=== PATIENT | female | born 1975 | race Caucasian/White ===

== ENCOUNTER → 2017-05-05 | Outpatient (CLI) | payer BC | LOC: LAB EV 17:08 | DX: N39.0 Urinary tract infection, site not specified (principal) | CPT/HCPCS: 87077; 87086; 87186 ==

== ENCOUNTER → 2017-10-11 | Outpatient (CLI) | payer BC | END | disposition home or self-care (01) | LOC: LAB 16:01 → LAB SHORT 16:01 | DX: R30.0 Dysuria (principal) | CPT/HCPCS: 87086 ==

== ENCOUNTER → 2017-10-27 | Outpatient (CLI) | payer BC | END | disposition home or self-care (01) | LOC: LAB SHORT 15:14 → LAB EV 15:14 | DX: N39.0 Urinary tract infection, site not specified (principal) | CPT/HCPCS: 87077; 87086; 87186 ==

== ENCOUNTER → 2018-05-09 | Outpatient (CLI) | payer BC | END | disposition home or self-care (01) | LOC: LAB 11:02 → LAB SHORT 11:02 | DX: R30.0 Dysuria (principal) | CPT/HCPCS: 87077; 87086; 87186 ==

== ENCOUNTER → 2018-06-06 | Outpatient (CLI) | payer BC | END | disposition home or self-care (01) | LOC: LAB SHORT 10:48 → LAB 10:48 | DX: R30.0 Dysuria (principal) | CPT/HCPCS: 87077; 87086; 87186 ==

== ENCOUNTER → 2018-06-28 | Outpatient (CLI) | payer BC | END | disposition home or self-care (01) | LOC: LAB SHORT 12:36 → LAB 12:36 | DX: R30.0 Dysuria (principal) | CPT/HCPCS: 87077; 87086; 87186 ==

== ENCOUNTER → 2018-07-18 | Outpatient (CLI) | payer BC | END | disposition home or self-care (01) | LOC: LAB 16:02 → LAB SHORT 16:02 | DX: R30.0 Dysuria (principal) | CPT/HCPCS: 87077; 87086; 87186 ==

== ENCOUNTER → 2018-09-23 | Outpatient (CLI) | payer BC | END | disposition home or self-care (01) | LOC: LAB SHORT 18:19 → LAB EV 18:19 | DX: N39.0 Urinary tract infection, site not specified (principal) | CPT/HCPCS: 87077; 87086; 87186 ==

== ENCOUNTER → 2019-01-14 | Outpatient (CLI) | payer BC | END | disposition home or self-care (01) | LOC: LAB SHORT 12:43 → LAB 12:43 | DX: R30.0 Dysuria (principal) | CPT/HCPCS: 87086 ==

== ENCOUNTER → 2019-02-10 | Outpatient (CLI) | payer BC | END | disposition home or self-care (01) | LOC: LAB SHORT 11:06 → LAB 11:06 | DX: R30.0 Dysuria (principal) | CPT/HCPCS: 87077; 87086; 87186 ==

== ENCOUNTER → 2019-03-23 | Outpatient (CLI) | payer BC | END | disposition home or self-care (01) | LOC: LAB SHORT 13:41 → LAB EV 13:41 | DX: N39.0 Urinary tract infection, site not specified (principal) | CPT/HCPCS: 87077; 87086; 87186 ==

== ENCOUNTER → 2019-05-25 | Outpatient (CLI) | payer BC | LOC: LAB SHORT 11:49 → LAB EV 11:49 | DX: R30.0 Dysuria (principal) | CPT/HCPCS: 87077; 87086; 87186 ==

== ENCOUNTER → 2019-05-28 | Outpatient (CLI) | payer BC | END | disposition home or self-care (01) | LOC: LAB SHORT 11:21 → LAB 11:21 | DX: R30.0 Dysuria (principal) | CPT/HCPCS: 87077; 87086; 87186 ==

== ENCOUNTER → 2019-07-04 | Outpatient (CLI) | payer BC | LOC: LAB 12:56 → LAB SHORT 12:56 | DX: R30.0 Dysuria (principal) | CPT/HCPCS: 87077; 87086; 87186 ==

== ENCOUNTER → 2019-07-14 | Outpatient (CLI) | payer BC | END | disposition home or self-care (01) | LOC: LAB 15:43 → LAB SHORT 15:43 | DX: R30.0 Dysuria (principal) | CPT/HCPCS: 87086 ==

== ENCOUNTER → 2022-04-19 | Outpatient (CLI) | payer BC ==
[2022-04-19 13:54] LABS: BASOPHILS ABSOLUTE AUTO 0.05 K/mm3 (0.00-0.23); BASOPHILS PERCENT AUTO 1 % (0-2); EOSINOPHILS ABSOLUTE AUTO 0.14 K/mm3 (0.00-0.68); EOSINOPHILS PERCENT AUTO 2 % (0-6); Hematocrit 35.4 % (33.0-51.0); Hemoglobin 11.1 g/dL (11.5-16.0); IMMATURE GRAN ABSOLUTE AUTO 0.01 K/mm3 (0.00-0.10); IMMATURE GRAN PERCENT AUTO 0 % (0-1); LYMPHOCYTES ABSOLUTE AUTO 1.58 K/mm3 (0.84-5.20); LYMPHOCYTES PERCENT AUTO 23 % (21-46); MONOCYTES ABSOLUTE AUTO 0.58 K/mm3 (0.16-1.47); MONOCYTES PERCENT AUTO 8 % (4-13); Mean Corpuscular HGB 24.2 pg (26.0-34.0); Mean Corpuscular HGB Conc 31.4 g/dL (31.5-36.5); Mean Corpuscular Volume 77 fL (80-100); Mean Platelet Volume 10.8 fL (9.1-12.4); NEUTROPHILS ABSOLUTE AUTO 4.67 K/mm3 (1.96-9.15); NEUTROPHILS PERCENT AUTO 66 % (41-73); Platelet Count 328 K/mm3 (150-400); RDW Coefficient Variation 16.5 % (11.7-14.2); RDW Standard Deviation 46.3 fL (35.1-46.3); Red Blood Cell Count 4.58 M/mm3 (3.80-5.20); White Blood Cell Count 7.03 K/mm3 (4.00-11.30)
[2022-04-19 18:20] LABS: Alanine Aminotransfer (ALT/SGP 38 U/L (12-78); Albumin, Blood 3.9 g/dL (3.4-5.0); Albumin/Globulin Ratio 1.2 (0.8-1.8); Alk Phos 44 U/L (50-136); Anion Gap 6 mmol/L (6-16); Aspartate Aminotrans (AST/SGOT 17 U/L (12-37); Bilirubin, Total 0.2 mg/dL (0.1-1.0); Blood Urea Nitrogen 18 mg/dL (8-24); Bun/Creatinine Ratio 26.8 (12.0-20.0); CHOL/HDL RATIO 5.1; CO2, Blood 25 mmol/L (21-32); Calcium, Blood 8.9 mg/dL (8.5-10.1); Chloride, Blood 106 mmol/L (98-108); Cholesterol 229 mg/dL (50-200); Creatinine, Blood 0.67 mg/dL (0.40-1.00); Globulin, Blood 3.3 g/dL (2.2-4.0); Glomerular Filtration Rate 110 (60-); Glucose, Blood 98 mg/dL (70-99); HDL Cholesterol 45 mg/dL (>39); LDL/HDL RATIO 3.6; Low Density Lipoprotein Chol 162 mg/dL (0-110); Potassium, Blood 4.3 mmol/L (3.5-5.5); Sodium, Blood 137 mmol/L (136-145); Total Protein, Blood 7.2 g/dL (6.4-8.2); Triglycerides 108 mg/dL (30-160); Very Low Density Lipoprot Chol 21 mg/dL (6-32)
== END | disposition home or self-care (01) ==
LOC: LAB SHORT 09:42
PROVIDERS: Family Medicine
DX: Z13.6 Encounter for screening for cardiovascular disorders (principal); Z79.899 Other long term (current) drug therapy
CPT/HCPCS: 80053; 80061; 85025

== ENCOUNTER 2022-10-11 08:07 | Day surgery (SDC) | payer BC ==
[2022-10-11] VITALS (11 sets, daily range): BP systolic 118–156; BP diastolic 70–97
[~2022-10-11] VITALS: Ht 167.6 cm; Wt 88.3 kg
--- NOTE | 2022-10-11 10:45 | NUR ---
PRE-OP NOTE Ambulatory in Day Surgery Patient confirms NPO status and agrees with scheduled surgery. Pre-Op teaching done. Pt verbalizes understanding. Patient States Post-Procedure ride home has been arranged.
--- NOTE | 2022-10-11 13:50 | NUR ---
INTO STEP-S/P LEFT BREAST LUMPECTOMY. STERI-STRIPS AND GUAZE X 2 C/D/I. NO NOTED BLEEDING OR SWELLING. DNANA DRAIN X 1 WITH SMALL AMOUNT OF SANGINOUS DRAINAGE. BREAST BINDER IN PLACE. PT REPORTS 2/10 LEFT BREAST INCISIONAL PAIN. PT TOLERATING SIPS OF H20 WITHOUT DIFFICULTY. VS STABLE. PT IS AWAKE, ALERT AND ORIENTED X 4. SHE STATES THAT SHE FEELS "GROGGY" STILL. RX SENT WITH PT SPOUSE GARO TO BE DROPPED OFF AT [facility].
--- NOTE | 2022-10-11 15:10 | NUR ---
Discharge instructions reviewed with patient. Patient verbalizes understanding. Copy given to patient to take home.Reviewed DANNA drain instructions with pt and her spouse. Both pt and spouse verbalize understanding. Pt discharged to home, out via wheelchair with belongings and discharge instructions on hand.
== END 2022-10-11 15:10 | disposition home or self-care (01) ==
LOC: ORSCMMR 08:07 → NM 08:07 → ORSCMMR 08:08 → NM 09:00
PROVIDERS: Surgery
PROC: 07B60ZX Excision of Left Axillary Lymphatic, Open Approach, Diagnostic (ICD-10-PCS; principal; 2022-10-11 10:15)
PROC: 0HBU0ZZ Excision of Left Breast, Open Approach (ICD-10-PCS; principal; 2022-10-11 10:15)
DX: C50.412 Malignant neoplasm of upper-outer quadrant of left female breast (principal); C77.3 Secondary and unspecified malignant neoplasm of axilla and upper limb lymph nodes; Z17.0 Estrogen receptor positive status [ER+]; G47.33 Obstructive sleep apnea (adult) (pediatric)
CPT/HCPCS: 38792; 76098; 88307; A9270; A9520; J0690; J1100; J1885; J2250; J2405; J2704; J2765; J3010; J7120; Q9968

== ENCOUNTER 2022-11-08 06:06 | Observation (INO) | payer BC ==
[~2022-11-08] VITALS: Ht 167.6 cm; Wt 85.2 kg
[2022-11-08] VITALS (14 sets, daily range): BP systolic 119–156; BP diastolic 54–79
[~2022-11-08 06:06] MED LIST: HYDROCODONE-AC1 EA19 PO
--- NOTE | 2022-11-08 07:38 | NUR ---
PRE-OP NOTE PT A&OX4, BREATHING RA, CALM, NO CONCERNS. LUNG SOUNDS CLEAR BILATERALLY, SKIN IS PW AND DRY. Ambulatory in Day Surgery Patient confirms NPO status and agrees with scheduled surgery. Pre-Op teaching done. Pt verbalizes understanding. Discharged via wheelchair to private car for ride home.
--- NOTE | 2022-11-08 08:04 | NUR ---
11/08/22 0804 Delaney Stroud FOR LEFT MODIFIED RADICAL MASTECTOMY, PATIENT PREPPED WITH CHLORAPREP FROM MIDLINE TO LEFT SHOULDER,LEFT ARM TO FINGERTIPS CIRCUMFRENTIALLY BY BEBETO
--- NOTE | 2022-11-08 13:15 | NUR ---
ARRIVAL PATIENT TO ROOM 216 VIA GURNEY, TRANSFERRED TO BED VIA SLIDER SHEET, TOLERATED WELL. VSS ON RA, LUNGS CLEAR. GAUZE & ABD PAD TO LEFT CHEST WALL, C/D/I. BREAST BINDER IN PLACE SNUG. 2 SITES TO RIGHT CHEST FOR MEDIPORT PLACEMENT WITH GAUZE & TEGADERM IN PLACE, C/D/I. PATIENT REPORTS PAIN 2/10 AT THIS TIME & TOLERABLE. ORIENTED TO ROOM & CALL LIGHT, IN REACH. PROVIDED FIRE SAFETY EDUCATION, PATIENT & SPOUSE AT BEDSIDE VERBALIZE AGREEMENT, BOTH DENY ANY SOURCE OF IGNITION PRESENT AT THIS TIME.
[2022-11-08] MEDS ORDERED: ACET325 PO (17:05)
[2022-11-08] MEDS ORDERED: Norco 5-325 Ta1 EACH PO (17:05)
--- NOTE | 2022-11-08 17:44 | NUR ---
DISCHARGE PATIENT EATING, DRINKING, & VOIDING W/O DIFFICULTY. PAIN MANAGED WELL WITH TYLENOL. DRESSINGS C/D/I. BREAST BINDER IN PLACE. DISCUSSED DRESSING CHANGES, DRAIN MANAGEMENT, EMPTYING DANNA DRAINS, RECORDING OUTPUT AND SENT INSTRUCTIONS HOME WITH PATIENT. SENT SCRIPT WITH PATIENT, DISCUSSED DISCHARGE PACKET. PATIENT DECLINED W/C, AMBULATED OUT WITH SPOUSE.
== END 2022-11-08 17:46 | disposition home or self-care (01) ==
LOC: ORSCMMR 06:06 → ORD 07:30 → SURS 13:08 → ORSCMMR 13:09 → SURS 13:09
PROVIDERS: ADMIT Surgery
PROC: 0HTU0ZZ Resection of Left Breast, Open Approach (ICD-10-PCS; principal; 2022-11-08 07:30)
DX: C50.412 Malignant neoplasm of upper-outer quadrant of left female breast (principal); C77.3 Secondary and unspecified malignant neoplasm of axilla and upper limb lymph nodes
CPT/HCPCS: 77001; 88307; A9270; C1788; J0690; J1100; J1642; J1885; J2405; J2704; J3010; J7120

== ENCOUNTER → 2023-02-07 | Outpatient (CLI) | payer BC ==
[~2023-02-07] MED LIST changes: +ACET325 PO; +CYCLOPHOSPHAMIDE IV; +DOXORUBICIN2 MG/1 ML IV; +EPIPEN0.3 MG/0.3 IV; +FAMO10 PO; +METPRE2; +Norco 5-325 Ta1 EACH PO
[2023-02-07 12:28] LABS: BASOPHILS ABSOLUTE AUTO 0.07 K/mm3 (0.00-0.23); BASOPHILS PERCENT AUTO 1 % (0-2); EOSINOPHILS ABSOLUTE AUTO 0.17 K/mm3 (0.00-0.68); EOSINOPHILS PERCENT AUTO 3 % (0-6); IMMATURE GRAN ABSOLUTE AUTO 0.06 K/mm3 (0.00-0.10); IMMATURE GRAN PERCENT AUTO 1 % (0-1); LYMPHOCYTES ABSOLUTE AUTO 0.86 K/mm3 (0.84-5.20); LYMPHOCYTES PERCENT AUTO 14 % (21-46); MONOCYTES ABSOLUTE AUTO 0.63 K/mm3 (0.16-1.47); MONOCYTES PERCENT AUTO 10 % (4-13); Mean Corpuscular HGB 32.9 pg (26.0-34.0); Mean Corpuscular HGB Conc 34.3 g/dL (31.5-36.5); Mean Corpuscular Volume 96 fL (80-100); NEUTROPHILS ABSOLUTE AUTO 4.37 K/mm3 (1.96-9.15); NEUTROPHILS PERCENT AUTO 71 % (41-73); Platelet Count 379 K/mm3 (150-400); RDW Coefficient Variation 15.4 % (11.7-14.2); Red Blood Cell Count 3.65 M/mm3 (3.80-5.20); White Blood Cell Count 6.16 K/mm3 (4.00-11.30)
[2023-02-07 12:51] LABS: Albumin, Blood 3.9 g/dL (3.4-5.0); Albumin/Globulin Ratio 1.2 (0.8-1.8); Bilirubin, Total 0.2 mg/dL (0.1-1.0); Bun/Creatinine Ratio 27.5 (12.0-20.0); Calcium, Blood 9.1 mg/dL (8.5-10.1); Creatinine, Blood 0.62 mg/dL (0.40-1.00); Globulin, Blood 3.2 g/dL (2.2-4.0); Potassium, Blood 3.8 mmol/L (3.5-5.5); Total Protein, Blood 7.1 g/dL (6.4-8.2)
== END ==
LOC: LAB SHORT 11:48 → LAB 11:48
PROVIDERS: Internal Medicine Hematology & Oncology
DX: C50.919 Malignant neoplasm of unspecified site of unspecified female breast (principal)
CPT/HCPCS: 80053; 85025

== ENCOUNTER 2023-02-12 07:43 | Day surgery (SDC) | payer BC ==
[~2023-02-12] VITALS: Ht 167.6 cm; Wt 86.0 kg
[~2023-02-12 07:43] MED LIST changes: -CYCLOPHOSPHAMIDE IV; -DOXORUBICIN2 MG/1 ML IV; -EPIPEN0.3 MG/0.3 IV; -FAMO10 PO; -METPRE2
[2023-02-12] MEDS ORDERED: DOXORUBICIN2 MG/1 ML IV (08:12)
[2023-02-12] MEDS ORDERED: CYCLOPHOSPHAMIDE IV (08:13)
[2023-02-12] MEDS ORDERED: FAMO10 PO (08:14)
[2023-02-12] MEDS ORDERED: EPIPEN0.3 MG/0.3 IV (08:14)
[2023-02-12] MEDS ORDERED: METPRE2 (08:15)
[2023-02-12 08:29] VITALS: BP 119/72
--- NOTE | 2023-02-12 08:59 | NUR ---
02/12/23 0859 Meagan Page History, Chart, Medications and Allergies reviewed before start of procedure.MONITOR INTACT WITH CONTINUOUS PULSE OXIMETRY, CONTINUOUS END TITAL CO2, AND INTERMITTENT BLOOD PRESSURE.3-LEAD EKG REVIEWED WITH PHYSICIAN PRIOR TO START OF PROCEDURE.O2 VIA N/C INTACT THROUGHOUT SEDATION/PROCEDURE.SEE ANESTHESIA RECORD.
[2023-02-12 09:24] VITALS: BP 94/79
[2023-02-12 09:30] VITALS: BP 109/80
[2023-02-12 09:45] VITALS: BP 111/68
--- NOTE | 2023-02-12 09:53 | NUR ---
Patient up to Ambulate independently. Gait steady. Discharge instructions reviewed with patient. Patient verbalizes understanding. Copy given to patient to take home. Patient States Post-Procedure ride home has been arranged. Discharged via wheelchair to private car for ride home.
== END 2023-02-12 09:53 | disposition home or self-care (01) ==
LOC: ORSCMMR 07:43 → ORSCSDS 09:00 → ORSCMMR 09:53
PROVIDERS: Internal Medicine Gastroenterology
PROC: 0DJD8ZZ Inspection of Lower Intestinal Tract, Via Natural or Artificial Opening Endoscopic (ICD-10-PCS; principal; 2023-02-12 09:00)
DX: Z12.11 Encounter for screening for malignant neoplasm of colon (principal); C80.1 Malignant (primary) neoplasm, unspecified; G47.33 Obstructive sleep apnea (adult) (pediatric); Z68.30 Body mass index [BMI] 30.0-30.9, adult; Z79.899 Other long term (current) drug therapy
CPT/HCPCS: J2405; J2704; J7120

== ENCOUNTER 2025-01-15 07:17 | Day surgery (SDC) | payer BC ==
[~2025-01-15] VITALS: Ht 165.1 cm; Wt 87.8 kg
[2025-01-15] VITALS (13 sets, daily range): BP systolic 90–126; BP diastolic 48–87
[~2025-01-15 07:17] MED LIST changes: +CYCLOPHOSPHAMIDE IV; +DOXORUBICIN2 MG/1 ML IV; +EPIPEN0.3 MG/0.3 IV; +FAMO10 PO; +METPRE2; +MOUNJARO2.5 MG/0.5 SC; +Nolvadex20 MG PO
[2025-01-15] MEDS ORDERED: CeFAZolin Sodium 2,000 MG in NS 100 ML IV SCH (08:10)
--- NOTE | 2025-01-15 08:33 | NUR ---
History, Chart, Medications and Allergies reviewed before start of procedure. Pre-Op teaching done. Pt verbalizes understanding. Ambulatory in Day Surgery. Patient confirms NPO status and agrees with scheduled surgery. Patient States Post-Procedure ride home has been arranged.
[2025-01-15] MEDS ORDERED: Bupivacaine 0.5% W/EPI 1:200000 SDV 30 ML Vial ONE (08:42)
[2025-01-15] MEDS ORDERED: Rocuronium Bromide 10 MG/ML 5ML Injection IV ONE ×2 (09:24→11:01)
[2025-01-15] MEDS ORDERED: Midazolam HCl 1MG / ML 2ML Vial ONE (09:24)
[2025-01-15] MEDS ORDERED: FentaNYL Citrate 50 MCG/ML 2 ML Injection IV PRN ×2 (10:10→11:45)
[2025-01-15] MEDS ORDERED: HYDROmorphone HCl/Pf 1MG SYR IV PRN ×2 (10:15)
[2025-01-15] MEDS ORDERED: Prochlorperazine Edisylate 10 mg Vial IV PRN (10:15)
[2025-01-15] MEDS ORDERED: Ondansetron HCl 2 MG / ML 2ML Vial IV PRN ×2 (10:15→11:45)
[2025-01-15] MEDS ORDERED: Ketorolac Tromethamine 30mg Vial IV PRN (10:20)
[2025-01-15] MEDS ORDERED: Ondansetron HCl 2 MG / ML 2ML Vial ONE (10:27)
[2025-01-15] MEDS ORDERED: Dexamethasone Sod Phos 10 MG/ML 1ML VIAL ONE (10:27)
[2025-01-15] MEDS ORDERED: FentaNYL Citrate 50 MCG/ML 2 ML Injection ONE (11:02)
[2025-01-15] MEDS ORDERED: Sugammadex Sodium 200 MG/2ML SDV (100 MG/ML) ONE (11:10)
[2025-01-15] MEDS ORDERED: Phenylephrine HCl 100 MCG/ML-NS 10MLSYR (1MG/10ML) ONE (11:19)
[2025-01-15] MEDS ORDERED: HYDROcodone 5-APAP 325 TAB PO PRN (11:40)
[2025-01-15] MEDS ORDERED: FLU VACC TS2025-26(6MOS UP)/PF 45 MCG/0.5 ML SYRINGE IM SCH (11:45)
[2025-01-15] MEDS ORDERED: Ketorolac Tromethamine 30mg Vial IV SCH (12:00)
[2025-01-15] MEDS ORDERED: Prochlorperazine Edisylate 10 mg Vial ONE (12:08)
--- NOTE | 2025-01-15 12:45 | NUR ---
ARRIVAL TO UNIT PT ARRIVED TO UNIT A/OX4 BUT SLEEPY. ON 3L NC. SLID OVER FROM [facility]. 3 LAP SITES C/D/I. DENIES N/V. DENIES PAIN. CALL LIGHT IN REACH SPOUSE AT BEDSIDE. ESTUARDO PATENT AND DRAINING TO GRAVITY.
[2025-01-15 14:54] LABS: BASOPHILS ABSOLUTE AUTO 0.03 K/mm3 (0.00-0.23); BASOPHILS PERCENT AUTO 0 % (0-2); EOSINOPHILS ABSOLUTE AUTO 0.00 K/mm3 (0.00-0.68); EOSINOPHILS PERCENT AUTO 0 % (0-6); Hematocrit 39.3 % (33.0-51.0); Hemoglobin 13.4 g/dL (11.5-16.0); IMMATURE GRAN ABSOLUTE AUTO 0.07 K/mm3 (0.00-0.10); IMMATURE GRAN PERCENT AUTO 1 % (0-1); LYMPHOCYTES ABSOLUTE AUTO 0.69 K/mm3 (0.84-5.20); LYMPHOCYTES PERCENT AUTO 5 % (21-46); MONOCYTES ABSOLUTE AUTO 0.42 K/mm3 (0.16-1.47); MONOCYTES PERCENT AUTO 3 % (4-13); Mean Corpuscular HGB Conc 34.1 g/dL (31.5-36.5); Mean Corpuscular Volume 96 fL (80-100); NEUTROPHILS ABSOLUTE AUTO 13.63 K/mm3 (1.96-9.15); NEUTROPHILS PERCENT AUTO 92 % (41-73); NRBC ABSOLUTE 0.00 K/mm3 (0.00-0.02); NRBC Auto 0.0 /100 WBC (0.0-0.2); Platelet Count 217 K/mm3 (150-400); RDW Coefficient Variation 12.4 % (11.7-14.2); RDW Standard Deviation 43.6 fL (35.1-46.3)
[2025-01-15] MEDS ORDERED: Norco 5-325 Ta1 EACH PO (15:58)
[2025-01-15] MEDS ORDERED: IBUP800 PO (15:59)
--- NOTE | 2025-01-15 16:34 | NUR ---
DISCHARGE NOTE PT A/OX4. TOLERATING PO INTAKE, DENIES N/V. PT VOIDING WELL. PAIN MANAGED PER EMAR. PERSONAL BELONGINGS W/ PT SPOUSE. PT VERBALIZES UNDERSTANDING OF DC INSTRUCTIONS. IV REMOVED. LAP SITES C/D/I. ESCORTED OUT VIA WC AT APPROX 1425.
== END 2025-01-15 16:27 | disposition home or self-care (01) ==
LOC: ORSCMMR 07:17 → ORD 09:45 → ORSCMMR 09:45 → SURS 12:24 → ORSCMMR 16:27
PROVIDERS: Obstetrics & Gynecology
DX: C50.412 Malignant neoplasm of upper-outer quadrant of left female breast (principal); C50.912 Malignant neoplasm of unspecified site of left female breast; Z17.0 Estrogen receptor positive status [ER+]; Z17.21 Progesterone receptor positive status; Z17.31 Human epidermal growth factor receptor 2 positive status; Z40.02 Encounter for prophylactic removal of ovary(s); Z79.899 Other long term (current) drug therapy; G47.33 Obstructive sleep apnea (adult) (pediatric); D25.9 Leiomyoma of uterus, unspecified; N83.292 Other ovarian cyst, left side; N83.291 Other ovarian cyst, right side
CPT/HCPCS: 36415; 85025; 88307; J0690; J0780; J1100; J1885; J2250; J2371; J2405; J2704; J3010; J7120